=== PATIENT | male | born 1980 | race Caucasian/White ===

== ENCOUNTER 2019-11-27 12:53 | Emergency (ER) | payer SELFPAY ==
[~2019-11-27] VITALS: Ht 182 cm; Wt 86.0 kg
--- NOTE | 2019-11-27 13:08 | ED General ---
General Stated Complaint: L LEG NUMBNESS Source of Information: Patient Exam Limitations: No Limitations History of Present Illness Date Seen by Provider: Nov 27, 2019 Time Seen by Provider: 13:05 Initial Comments To ER with left leg pain and numbness. The pain begins in the left buttocks and radiates down to the left knee. He awakened with this. 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 He noticed a popping sensation in his left medial knee yesterday, the pain started this morning upon awakening. Unsure if the instruments are related. Timing/Duration: 1-2 Days Severity: Moderate Allergies and Home Medications Allergies Coded Allergies: No Known Drug Allergies (Unverified , 11/27/19) Patient Home Medication List Home Medication List Reviewed: Yes Review of Systems Review of Systems Constitutional: see HPI; No chills, No fever EENTM: see HPI Respiratory: no symptoms reported Cardiovascular: no symptoms reported Genitourinary: no symptoms reported Musculoskeletal: no symptoms reported Skin: no symptoms reported Psychiatric/Neurological: No Symptoms Reported Hematologic/Lymphatic: No Symptoms Reported Immunological/Allergic: no symptoms reported Past Yeppdhh-Razqcp-Ohollk Hx Patient Social History Recent Foreign Travel: No Contact w/Someone Who Travel: No Physical Exam Vital Signs Capillary Refill : Height, Weight, BMI Height: '" Weight: lbs. oz. kg; BMI Method: General Appearance: No Apparent Distress, WD/WN Eyes: Bilateral Eye Normal Inspection, Bilateral Eye PERRL, Bilateral Eye EOMI HEENT: PERRL/EOMI, TMs Normal Respiratory: No Accessory Muscle Use, No Respiratory Distress Gastrointestinal: Normal Bowel Sounds, Non Tender, Soft Extremity: Normal Capillary Refill, Normal Inspection Neurologic/Psychiatric: Alert, Oriented x3 Skin: Normal Color, Warm/Dry Comments Medial left knee tenderness to palpation without deformity or swelling. Strong posterior tibial pulse. Progress/Results/Core Measures Suspected Sepsis SIRS Temperature: Pulse: Respiratory Rate: Blood Pressure / Mean: Results/Orders My Orders Orders - ATIF LEMUS APRN Ketorolac Injection (Toradol Injection) (11/27/19 13:15) Orphenadrine Inj (Ed Only) (Norflex Inje (11/27/19 13:15) Knee, Left, 3 Views (11/27/19 13:03) Vital Signs/I&O Capillary Refill : Departure Impression Primary Impression: Lumbar radiculopathy Disposition: 01 HOME, SELF-CARE Condition: Stable Departure-Patient Inst. Decision time for Depature: 13:12 Referrals: NO,LOCAL PHYSICIAN (PCP/Family) Primary Care Physician Patient Instructions: Sciatica Add. Discharge Instructions: 1. No heavy lifting or work for the next 3-4 days. Steroids and pain medication as directed. Return to ER for any worsening symptoms, loss of the ability to control your bowels or bladder or loss of sensation of genitals as these represent emergencies. Scripts Prednisone (Prednisone) 20 Mg Tab 40 MG PO DAILY, #8 TAB 0 Refills Prov: ATIF LEMUS APRN 11/27/19 ATIF LEMUS APRN Nov 27, 2019 13:08
[2019-11-27] MEDS ORDERED: HYDR-3870 PO (13:14)
[2019-11-27] MEDS ORDERED: PRD20T PO (13:14)
[2019-11-27] MEDS ORDERED: KETOROLAC 60 MG/2 ML VIAL IM ONE (13:15)
[2019-11-27] MEDS ORDERED: ORPHENADRINE 60 MG/2 ML (NORFLEX) AMP (ED ONLY) IM ONE (13:15)
--- NOTE | 2019-11-27 13:37 | Diagnostic Imaging Report ---
INDICATION: Left knee popping and pain. TIME OF EXAM: 1:10 PM 3 views of the left knee were obtained. Alignment is normal. Joint spaces are well maintained. Articular surfaces are smooth. Well-corticated osseous densities along the medial femoral epicondyle are noted likely chronic. No acute fracture or dislocation is seen. There is no joint effusion detected. IMPRESSION: No acute bony abnormality is detected. Dictated by: Dictated on workstation # [id number]
[2019-11-27 13:57] VITALS: BP 142/101
== END 2019-11-27 13:57 | disposition home or self-care (01) ==
LOC: EDUNIT# 12:53 → ER 12:55
DX: M54.16 Radiculopathy, lumbar region (principal)
CPT/HCPCS: 73562

== ENCOUNTER 2020-07-17 10:30 | Emergency (ER) | payer SELFPAY ==
[~2020-07-17] VITALS: Ht 182 cm; Wt 94.0 kg
[~2020-07-17 10:30] MED LIST: HYDR-3870 PO; PRD20T PO
[2020-07-17 10:47] VITALS: BP 145/70
[2020-07-17] MEDS ORDERED: AMOX500C2 PO (11:14)
[2020-07-17] MEDS ORDERED: IBUP-1780 PO (11:14)
[2020-07-17] MEDS ORDERED: ACHD5005 PO (11:14)
--- NOTE | 2020-07-17 11:15 | ED EENT ---
History of Present Illness General Chief Complaint: Dental Problems/Pain Stated Complaint: TOOTH ACHE Nursing Triage Note: PT PRESENTS WITH LEFT LOWER DENTAL PAIN. TOOTH IS MOST MISSING WITH A DENTAL HAILEY PRESENT. PT STATES ITS 5 WEEKS TO GET INTO [facility]. Source: patient History of Present Illness Date Seen by Provider: Jul 17, 2020 Time Seen by Provider: 10:38 Initial Comments 39-year-old male presenting with left lower dental pain x1 week. He has had chronic issues with his teeth and usually follows with the [facility] dental clinic. When he checked about getting him with them they told him it would be 5 weeks before he can be seen. He denies any fever or chills. He has had some pu s draining from the tooth. There are some mild swelling to the gums. He has been trying yfrn-[id number] meds without any significant improvement. Has mom given him a single hydrocodone which she states that helps with his symptoms. He has multiple broken and missing teeth as well as widespread dental decay. Allergies and Home Medications Allergies Coded Allergies: No Known Drug Allergies (Unverified , 11/27/19) Home Medications Amoxicillin 500 Mg Capsule, 500 MG PO TID Prescribed by: NIA KAMINSKI on 07/17/20 1114 Hydrocodone/Acetaminophen 1 Each Tablet, 1 EACH PO Q4-6HR PRN for PAIN-MODERATE Prescribed by: ATIF LEMUS on 11/27/19 1314 Hydrocodone/Acetaminophen 1 Each Tablet, 1 TAB PO Q8H PRN for PAIN-SEVERE (8-10) Prescribed by: NIA KAMINSKI on 07/17/20 1115 Ibuprofen 800 Mg Tablet, 800 MG PO Q8H PRN for PAIN Prescribed by: NIA KAMINSKI on 07/17/20 1114 Prednisone 20 Mg Tab, 40 MG PO DAILY Prescribed by: ATIF LEMSU on 11/27/19 1314 Patient Home Medication List Home Medication List Reviewed: Yes Review of Systems Review of Systems Constitutional: No chills, No fever Eyes: No Symptoms Reported Ears: No Symptoms Reported Nose: no symptoms reported Mouth: see HPI, pain, swelling, purulent discharge Throat: no symptoms reported Respiratory: no symptoms reported Cardiovascular: no symptoms reported Gastrointestinal: nausea (especially first thing in the morning when he wakes up for about 30 minutes) Musculoskeletal: no symptoms reported Skin: no symptoms reported Neurological: No Symptoms Reported Past Bhlxtsy-Aasbug-Okwksw Hx Past Med/Social Hx: Reviewed Nursing Past Med/Soc Hx Patient Social History Alcohol Use: Denies Use Drug of Choice: MARIJUANA Smoking Status: Current Everyday Smoker Type Used: Cigarettes Recent Infectious Disease Expo: No Recent Hopitalizations: No Seasonal Allergies Seasonal Allergies: No Past Medical History Surgeries: No Respiratory: No Cardiac: No Neurological: No Genitourinary: No Gastrointestinal: No Musculoskeletal: No Endocrine: No HEENT: No Cancer: No Psychosocial: No Integumentary: No Blood Disorders: No Physical Exam Vital Signs Vital Signs - First Documented 07/17/20 10:47 Temp 36.4 Pulse 57 Resp 16 B/P (MAP) 145/70 (95) Pulse Ox 99 O2 Delivery Room Air Height, Weight, BMI Height: '" Weight: lbs. oz. kg; 28.00 BMI Method: General Appearance: WD/WN, no apparent distress Mouth/Throat: dental tenderness, other (widespread dental decay with several broken and missing teeth. left posterior mandible broken tooth with swelling to gums and tender to palpation) Neck: full range of motion, supple Cardiovascular: normal peripheral pulses, regular rate, rhythm Respiratory: chest non-tender, lungs clear, normal breath sounds Neurologic/Psychiatric: alert, oriented x 3 Skin: normal color, warm/dry Progress/Results/Core Measures Results/Orders Vital Signs/I&O 07/17/20 10:47 Temp 36.4 Pulse 57 Resp 16 B/P (MAP) 145/70 (95) Pulse Ox 99 O2 Delivery Room Air Blood Pressure Mean: 95 Progress Progress Note : Progress Note treat with amoxicillin and ibuprofen and hydrocodone. Counseled on follow up with clinic to see dentist as soon as possible for definitive care Departure Impression Primary Impression: Dental abscess Additional Impressions: Pain due to dental caries Chronic dental pain Pain, dental Disposition: HOME, SELF-CARE Condition: Stable Departure-Patient Inst. Decision time for Depature: 11:15 Referrals: NO,LOCAL PHYSICIAN (PCP) Primary Care Physician [facility] Patient Instructions: Dental Pain ED, Tooth Decay, Adult (DC), Tooth Abscess ( DC) Add. Discharge Instructions: Follow up with Dental clinic through [facility] or dentist of your choice as soon as possible. Take antibiotics to help treat infection in the meantime. [facility] phone number is [phone] All discharge instructions reviewed with patient and/or family. Voiced understanding. Scripts Ibuprofen (Ibuprofen) 800 Mg Tablet 800 MG PO Q8H PRN for PAIN for 10 Days, #30 TAB 0 Refills Prov: NIA KAMINSKI MD 07/17/20 Hydrocodone/Acetaminophen (Hydrocodone-Acetamin 5-325 mg) 1 Each Tablet 1 TAB PO Q8H PRN for PAIN-SEVERE (8-10) for 5 Days, #15 TAB 0 Refills Prov: NIA KAMINSKI MD 07/17/20 Amoxicillin (Amoxicillin) 500 Mg Capsule 500 MG PO TID for dental abscess for 10 Days, #30 CAP 0 Refills Prov: NIA KAMINSKI MD 07/17/20 Images Mouth/Nose 1 - Caries, Fracture Tooth, Swelling, Tenderness NIA KAMINSKI MD Jul 17, 2020 11:15
== END 2020-07-17 11:21 | disposition home or self-care (01) ==
LOC: EDUNIT# 10:30 → ER FS 10:32
DX: K04.7 Periapical abscess without sinus (principal); K02.9 Dental caries, unspecified; F17.210 Nicotine dependence, cigarettes, uncomplicated; Z79.52 Long term (current) use of systemic steroids
CPT/HCPCS: 99282

== ENCOUNTER 2021-05-16 18:57 | Emergency (ER) | payer SELFPAY ==
[~2021-05-16 18:57] MED LIST changes: +ACHD5005 PO; +AMOX500C2 PO; +IBUP-1780 PO
--- OUTSIDE RECORDS SUMMARY | 2021-05-16 19:02 | XMS REPORT | Clinical Summary ---
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
[2021-05-16 19:39] VITALS: BP 161/93
[2021-05-16] MEDS ORDERED: KETOROLAC 60 MG/2 ML VIAL IM ONE (19:45)
[2021-05-16] MEDS ORDERED: predniSONE 20 MG TAB PO ONE (19:45)
[2021-05-16] MEDS ORDERED: PRD20T PO (19:52)
[2021-05-16] MEDS ORDERED: ACHD5005 PO (19:52)
--- NOTE | 2021-05-16 19:52 | ED Lower Extremity ---
General Chief Complaint: Lower Extremity Stated Complaint: L LEG PAIN Source: patient Exam Limitations: no limitations (ATIF LEMUS APRN) History of Present Illness Date Seen by Provider: May 16, 2021 Time Seen by Provider: 19:46 Initial Comments To ER with pain in the low back that radiates into the left butt cheek and all the way down the left leg. Pain feels better with the weight offloaded while sitting in the bed. He is in a position of comfort which is in a seated position with all of his weight on his right buttock and his left leg crossed over the right. No wound on either leg. Denies loss of bowel or bladder control, no preceding trauma, no fever no chills, no numbness of genitals, de nies IV drug use, no history of cancer. Onset: yesterday Severity: moderate Pain/Injury Location: right leg Method of Injury: unknown Modifying Factors: Worse With Movement (ATIF LEMUS APRN) Allergies and Home Medications Allergies Coded Allergies: No Known Drug Allergies (Unverified , 11/27/19) Patient Home Medication List Home Medication List Reviewed: Yes (ATIF LEMUS APRN) Amoxicillin (Amoxicillin) 500 Mg Capsule, 500 MG PO TID Prescribed by: NIA KAMINSKI on 07/17/20 1114 Hydrocodone/Acetaminophen (Lorcet 5-325 mg Tablet) 1 Each Tablet, 1 EACH PO Q4- 6HR PRN for PAIN-MODERATE Prescribed by: ATIF LEMUS on 11/27/19 1314 Hydrocodone/Acetaminophen (Hydrocodone-Acetamin 5-325 mg) 1 Each Tablet, 1 TAB PO Q8H PRN for PAIN-SEVERE (8-10) Prescribed by: NIA KAMINSKI on 07/17/20 1115 Hydrocodone/Acetaminophen (Hydrocodone-Acetamin 5-325 mg) 1 Each Tablet, 1 TAB PO Q4H PRN for PAIN-MODERATE (5-7) Prescribed by: ATIF LEMUS on 05/16/211951 Ibuprofen (Ibuprofen) 800 Mg Tablet, 800 MG PO Q8H PRN for PAIN Prescribed by: NIA KAMINSKI on 07/17/20 1114 Prednisone (Prednisone) 20 Mg Tab, 40 MG PO DAILY Prescribed by: ATIF LEMUS on 11/27/19 1314 Prednisone (Prednisone) 20 Mg Tab, 40 MG PO DAILY Prescribed by: ATIF LEMUS on 05/16/211951 Review of Systems Constitutional: see HPI; No chills, No fever EENTM: see HPI Respiratory: no symptoms reported Cardiovascular: no symptoms reported Genitourinary: see HPI Musculoskeletal: see HPI, back pain Skin: see HPI Psychiatric/Neurological: See HPI (ATIF LEMUS APRN) Past Bgcumsn-Hvlamo-Hskche Hx Patient Social History Tobacco Use?: Yes Tobacco type used: Cigarettes Smoking Status: Current Everyday Smoker Use of E-Cig and/or Vaping dev: No Substance use?: No Alcohol Use?: No (ATIF LEMUS APRN) Immunizations Up To Date Influenza Vaccine Up-to-Date: Yes; Up-to-Date First/Initial COVID19 Vaccinat: SEPTEMBER 2020 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: [employer] (ATIF LEMUS APRN) Seasonal Allergies Seasonal Allergies: No (ATIF LEMUS APRN) Past Medical History Surgeries: No Respiratory: No Cardiac: No Neurological: No Genitourinary: No Gastrointestinal: No Musculoskeletal: No Endocrine: No HEENT: No Cancer: No Psychosocial: No Integumentary: No Blood Disorders: No (ATIF LEMUS APRN) Physical Exam Vital Signs Vital Signs - First Documented 05/16/21 19:39 Temp 36.6 Pulse 88 Resp 22 B/P (MAP) 161/93 (115) Pulse Ox 98 O2 Delivery Room Air (KESHA,CARLOS K DO) Vital Signs Capillary Refill : (ATIF LEMUS APRN) Height, Weight, BMI Height: '" Weight: lbs. oz. kg; 28.00 BMI Method: General Appearance: WD/WN, no apparent distress HEENT: PERRL/EOMI, normal ENT inspection, TMs normal Neck: non-tender, full range of motion Respiratory: no respiratory distress, no accessory muscle use Hips: bilateral hip non-tender, bilateral hip normal inspection, bilateral hip normal range of motion Legs: left leg pain, left leg other (Strong dorsalis pedis pulse bilaterally no wound) Knees: bilateral knee non-tender, bilateral knee normal inspection, bilateral knee normal range of motion Ankles: bilateral ankle non-tender, bilateral ankle normal inspection, bilateral ankle normal range of motion Feet: bilateral foot non-tender, bilateral foot normal inspection, bilateral foot normal range of motion (ATIF LEMUS APRN) Progress/Results/Core Measures Results/Orders Medications Given in ED Current Medications Medications Dose Ordered Sig/Brandon Route Start Time Stop Time Status Last Admin Dose Admin Acetaminophen/ Hydrocodone Bitart 1 ea Q4H PRN PO 05/16/21 19:45 05/16/21 20:08 DC 05/16/21 20:06 1 EA Ketorolac Tromethamine 60 mg ONCE ONCE IM 05/16/21 19:45 05/16/21 19:47 DC 05/16/21 20:06 60 MG Prednisone 40 mg ONCE ONCE PO 05/16/21 19:45 05/16/21 19:47 DC 05/16/21 20:05 40 MG (CARLOS REBOLLEDO DO) Vital Signs/I&O 05/16/21 19:39 Temp 36.6 Pulse 88 Resp 22 B/P (MAP) 161/93 (115) Pulse Ox 98 O2 Delivery Room Air (CARLOS REBOLLEDO DO) Departure Impression Primary Impression: Acute low back pain Additional Impression: Lumbar radiculopathy Disposition: HOME, SELF-CARE Condition: Stable Departure-Patient Inst. Decision time for Depature: 19:48 (ATIF LEMUS APRN) Referrals: JULIANNE RADFORD BRIAN J MD NO,LOCAL PHYSICIAN (PCP) Primary Care Physician Patient Instructions: Low Back Pain in Adults Add. Discharge Instructions: 1. Call Dr. MARKS or Dr. Radford from front end alignment specialist of the [facility]. They can facilitate getting an MRI of your lumbar spine and further treatment. Call tomorrow for an appointment. All discharge instructions reviewed with patient and/or family. Voiced understanding. Scripts Hydrocodone/Acetaminophen (Hydrocodone-Acetamin 5-325 mg) 1 Each Tablet 1 TAB PO Q4H PRN for PAIN-MODERATE (5-7), #10 TAB Prov: ATIF LEMUS APRN 05/16/21 Prednisone (Prednisone) 20 Mg Tab 40 MG PO DAILY, #6 TAB 0 Refills Prov: ATIF LEMUS APRN 05/16/21 Work/School Note: Work Release Form Date Seen in the Emergency Department: May 16, 2021 Return to Work: May 18, 2021 ATTENDING PHYSICIAN NOTE: I WAS PHYSICALLY PRESENT ER PHYSICIAN WHEN THIS PATIENT WAS IN ER, BUT I WAS NOT INVOLVED IN ANY DECISION MAKING OR ANY CARE OF THIS PATIENT. (CARLOS REBOLLEDO DO) ATIF LEMUS APRN May 16, 2021 19:52 CARLOS REBOLLEDO DO May 17, 2021 04:12
== END 2021-05-16 20:08 | disposition home or self-care (01) ==
LOC: EDUNIT# 18:57 → ER 18:59
DX: M54.16 Radiculopathy, lumbar region (principal); F17.210 Nicotine dependence, cigarettes, uncomplicated
CPT/HCPCS: 96372; 99284

== ENCOUNTER 2021-07-26 16:52 | Emergency (ER) | payer SELFPAY ==
[~2021-07-26] VITALS: Ht 183 cm; Wt 107.0 kg
--- NOTE | 2021-07-26 17:20 | ED Back Pain ---
General Chief Complaint: Back Problems Stated Complaint: L LEG PAIN Nursing Triage Note: PT AMB TO ER WITH C/O L LEG AND BACK PAIN AND TINLGING FEELING. PT SAID HE WAS CARRYING SOME SHINGLES UP A LADDER AND FELT THIS AFTER Source of Information: Patient Exam Limitations: No Limitations (FERNY DAVILA MED STUDENT) History of Present Illness Date Seen by Provider: Jul 26, 2021 Time Seen by Provider: 15:08 Initial Comments Patient is a 40 year old male who presents to the ED with complaints of left buttock/leg pain. Reports climbing up a ladder today at 9am carrying shingles and setting them down on the roof, then upon standing felt a "jolt" of sharp pain radiating from his left buttock down to his left knee on the posterior aspect of the thigh. Never felt or heard a popping sensation. Reports that m ovement and walking worsen the pain. Took some tylenol and aleve with no relief of pain. Lying on right hip with left leg draped over right leg help minimize the pain. Rates his pain at a 7/10 currently. Denies numbness and tingling of the left lower extremity. Is able to move the left hip, knee, and ankle. Dorsiflexion and plantarflexion of left foot minimal secondary to pain. Grimaced when palpating the skin over the sciatic nerve of left buttock. No chest pain, fevers, dysuria, bowel or bladder incontinence or headache. Reports an episode like this about 7 months ago for which he received a steroid and a pain med. Location: Other (left buttock left leg) Timing/Duration: 4-6 Hours Severity: Moderate Pain/Injury Location: Lower Extremity (left leg/buttock) Radiation: Lower Legs (from left buttock to left knee posteriorly along the thigh) Method of Injury: Other (standing upright from bending position) Modifying Factors: Improves With Jarring, Improves With Movement Associated Symptoms: denies symptoms; No numbness in legs/feet, No tingling in legs/feet, No sensory/motor loss, No loss of bladder control, No loss of bowel control (FERNY DAVILA MED STUDENT) Allergies and Home Medications Allergies Coded Allergies: No Known Drug Allergies (Unverified , 11/27/19) Patient Home Medication List Home Medication List Reviewed: Yes (J LUIS IVORY MD) Amoxicillin (Amoxicillin) 500 Mg Capsule, 500 MG PO TID Prescribed by: NIA KAMINSKI on 07/17/20 111 Hydrocodone/Acetaminophen (Lorcet 5-325 mg Tablet) 1 Each Tablet, 1 EACH PO Q4- 6HR PRN for PAIN-MODERATE Prescribed by: ATIF LEMUS on 11/27/19 131 Hydrocodone/Acetaminophen (Hydrocodone-Acetamin 5-325 mg) 1 Each Tablet, 1 TAB PO Q8H PRN for PAIN-SEVERE (8-10) Prescribed by: NIA KAMINSKI on 07/17/20 1115 Hydrocodone/Acetaminophen (Hydrocodone-Acetamin 5-325 mg) 1 Each Tablet, 1 TAB PO Q4H PRN for PAIN-MODERATE (5-7) Prescribed by: ATIF LEMUS on 05/16/211951 Hydrocodone/Acetaminophen (Hydrocodone-Acetamin 7.5-325) 1 Each Tablet, 1 EACH PO Q6H Prescribed by: J LUIS IVORY on 07/26/211734 Ibuprofen (Ibuprofen) 800 Mg Tablet, 800 MG PO Q8H PRN for PAIN Prescribed by: NIA KAMINSKI on 07/17/20 111 Prednisone (Prednisone) 20 Mg Tab, 40 MG PO DAILY Prescribed by: ATIF LEMUS on 11/27/191313 Prednisone (Prednisone) 20 Mg Tab, 40 MG PO DAILY Prescribed by: ATIF LEMUS on 05/16/211951 Prednisone (Prednisone) 50 Mg Tab, 50 MG PO DAILY Prescribed by: J LUIS IVORY on 07/26/211734 Review of Systems Constitutional: no symptoms reported; No chills, No diaphoresis, No fever EENTM: no symptoms reported; No hearing loss, No blurred vision, No double vision Respiratory: no symptoms reported; No cough, No dyspnea on exertion, No short of breath Cardiovascular: no symptoms reported; No chest pain, No edema, No palpitations Gastrointestinal: no symptoms reported; No abdominal pain, No constipation, No diarrhea, No nausea, No vomiting Genitourinary: no symptoms reported; No dysuria, No frequency Musculoskeletal: other (left buttock and left leg pain along posterior left calf to left knee) Skin: no symptoms reported; No change in color, No change in hair/nails Psychiatric/Neurological: No Symptoms Reported; Denies Anxiety, Denies Depressed (FERNY DAVILA MED STUDENT) All Other Systems Reviewed Negative Unless Noted: Yes (LOL[employer]icksPal STUDENT) Past Kzuzcua-Olvktb-Lyhnny Hx Patient Social History Tobacco Use?: Yes Tobacco type used: Cigarettes Smoking Status: Current Everyday Smoker (1ppd x24 years) Smokeless Tobacco Frequency: Never a User Use of E-Cig and/or Vaping dev: No Use of E-Cig and/or Vaping Chris: Never a User Substance use?: No Alcohol Use?: Yes Alcohol type: Beer Alcohol Frequency: Rarely Pt feels they are or have been: No ([employer] STUDENT) Immunizations Up To Date Tetanus Booster (TDap): Unknown Influenza Vaccine Up-to-Date: Yes; Up-to-Date First/Initial COVID19 Vaccinat: SEPTEMBER 2020 COVID19 Vaccine 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 ([employer] LINNEA) Seasonal Allergies Seasonal Allergies: No ([facility]) Past Medical History Surgeries: No Respiratory: No Cardiac: No Neurological: No Genitourinary: No Gastrointestinal: No Musculoskeletal: No Endocrine: No HEENT: No Cancer: No Psychosocial: No Integumentary: No Blood Disorders: No ([employer] STUDENT) Physical Exam Vital Signs Vital Signs - First Documented 07/26/21 17:00 Temp 36.5 Pulse 84 Resp 16 B/P (MAP) 160/92 (114) (J LUIS IVORY MD) Vital Signs Capillary Refill : ([employer]AE [employer] STUDENT) Height, Weight, BMI Height: '" Weight: lbs. oz. kg; 31.00 BMI Method: General Appearance: No Apparent Distress, WD/WN HEENT: PERRL/EOMI, Pharynx Normal, Moist Mucous Membranes Neck: Full Range of Motion, Normal Inspection, Non Tender Cardiovascular: Regular Rate, Rhythm, No Edema, Normal Peripheral Pulses Respiratory: Chest Non Tender, Lungs Clear, Normal Breath Sounds Peripheral Pulses: 2+ Radial Pulses (R), 2+ Radial Pulses (L) Gastrointestinal: Normal Bowel Sounds, Non Tender, Soft Back: Normal Inspection, No Vertebral Tenderness Extremity: Normal Capillary Refill, Non Tender, No Calf Tenderness, No Pedal Edema Neurologic/Psychiatric: Alert, Oriented x3, No Motor/Sensory Deficits, Normal Mood/Affect Skin: Normal Color, Warm/Dry Lymphatic: No Adenopathy (Head and Neck) (FERNY DAVILA MED STUDENT) Progress/Results/Core Measures Results/Orders My Orders Orders - J LUIS IVORY MD Orphenadrine Inj (Ed Only) (Norflex Inje (07/26/21 17:30) Ketorolac Injection (Toradol Injection) (07/26/21 17:30) Prednisone Tablet (Deltasone Tablet) (07/26/21 17:30) Hydrocodone/Apap 5/325 Tablet (Lortab 5 (07/26/21 17:30) (J LUIS IVORY MD) Vital Signs/I&O 07/26/21 07/26/21 17:00 18:05 Temp 36.5 36.5 Pulse 84 80 Resp 16 16 B/P (MAP) 160/92 (114) 151/87 (J LUIS IVORY MD) Blood Pressure Mean: 114 Progress Progress Note : Time: 17:30 Progress Note 40yo male to the ER with left LE radicular pain, from left sciatic area, lower back. Was carrying a stack of shingles, let them down and when he stood up - had immediate onset of pain. Pain radiates to left knee and even his foot hurts. No saddle anethesia. No loss of bowel or bladder function. No retention. Had similar sx in April. No follow up. No trauma today. Physical exam remarkable for tenderness left sciatic and lower lumbar. DTR LLE intact. normal sensation. good pulses. decreased dorsiflexion left foot; good plantar flexion. Neg SLR left. position of comfort on right hip with left leg crossed over right. Treated in ED with hydrocodone, oral prednisone and norflex and toradol. HOme with pain meds and steroids. Alternate heat and ice. Strongly encouraged to follow up for imaging of his back Smoking cessation encouraged. (J LUIS IVORY MD) Departure Impression Primary Impression: Lumbar radiculopathy Additional Impression: Acute low back pain Qualified Codes: M54.42 - Lumbago with sciatica, left side Disposition: 01 HOME, SELF-CARE Condition: Stable Departure-Patient Inst. Decision time for Depature: 17:33 (J LUIS IVORY MD) Referrals: [facility] [place],LOCAL PHYSICIAN (PCP) Primary Care Physician Patient Instructions: Radiculopathy (DC) Add. Discharge Instructions: Alternate heat and ice to the area of pain for the next 3-5 days. Hydrocodone every 6 hours with food as needed for severe pain. Do not drive and take it. It can become addicting. Ibuprofen 800mg (4 tablets) with food every 8 hours for pain and inflammation. 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 Take this daily as instructed on the box. You can also put over the counter Lidocaine patches over the area of pain on your left hip/low back - follow packaging directions. Please follow up with a primary care physician for further imaging of your back - as you may need back injections or possibly surgery if this keeps repeating. Return to the ER if you have loss of bowel or bladder function, inability to urinate, loss of function of your left leg, or any other emergent and concerning symptoms. Scripts Hydrocodone/Acetaminophen (Hydrocodone-Acetamin 7.5-325) 1 Each Tablet 1 EACH PO Q6H, #15 TAB Prov: J LUIS IVORY MD 07/26/21 Prednisone (Prednisone) 50 Mg Tab 50 MG PO DAILY for 5 Days, #5 TAB Prov: J LUIS IVORY MD 07/26/21 Verification and Attestation of Medical Student E/M Service A medical student performed and documented this service in my presence. I reviewed and verified all information documented by the medical student and made modifications to such information, when appropriate. I personally performed the physical exam and medical decision making. J Luis Ivory, Jul 26, 2021,17:33 (J LUSI IVORY MD) FERNY DAVILA MED STUDENT Jul 26, 2021 17:20 J LUIS IVORY MD Jul 26, 2021 17:35
[2021-07-26] MEDS ORDERED: HYDROcodone/APAP 5 MG/325 MG (LORTAB) TAB PO ONE (17:30)
[2021-07-26] MEDS ORDERED: ORPHENADRINE 60 MG/2 ML (NORFLEX) AMP (ED ONLY) IM ONE (17:30)
[2021-07-26] MEDS ORDERED: KETOROLAC 60 MG/2 ML VIAL IM ONE (17:30)
[2021-07-26] MEDS ORDERED: predniSONE 20 MG TAB PO ONE (17:30)
[2021-07-26] MEDS ORDERED: PRD50T PO (17:35)
[2021-07-26] MEDS ORDERED: HYDR-3817 PO (17:35)
[2021-07-26 18:05] VITALS: BP 151/87
== END 2021-07-26 18:07 | disposition home or self-care (01) ==
LOC: EDUNIT# 16:52 → ER 16:54
DX: M54.16 Radiculopathy, lumbar region (principal); F17.210 Nicotine dependence, cigarettes, uncomplicated
CPT/HCPCS: 99284

== ENCOUNTER 2021-09-24 08:02 | Emergency (ER) | payer SELFPAY ==
[~2021-09-24 08:02] MED LIST changes: +HYDR-3817 PO; +PRD50T PO
[2021-09-24 08:10] VITALS: BP 150/104
--- NOTE | 2021-09-24 08:19 | ED Back Pain ---
General Chief Complaint: Back Problems Stated Complaint: BACK INJ History of Present Illness Date Seen by Provider: September 24, 2021 Time Seen by Provider: 08:19 Initial Comments 41-year-old male presents with low back pain. Patient has a history of chronic low back pain and has had issues for at least 2 years with previous ER visits. 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 Patient reports that he noticed he was a little stiff and sore on Saturday and has gotten worse throughout the weekend. He has little bit of pain that goes down to its left leg. He denies any numbness, tingling, loss of bowel or bladder. Allergies and Home Medications Allergies Coded Allergies: No Known Drug Allergies (Unverified , 11/27/19) Patient Home Medication List Home Medication List Reviewed: Yes Amoxicillin (Amoxicillin) 500 Mg Capsule, 500 MG PO TID Prescribed by: NIA KAMINSKI on 07/17/20 1114 Hydrocodone/Acetaminophen (Lorcet 5-325 mg Tablet) 1 Each Tablet, 1 EACH PO Q4- 6HR PRN for PAIN-MODERATE Prescribed by: ATIF LEMUS on 11/27/19 1314 Hydrocodone/Acetaminophen (Hydrocodone-Acetamin 5-325 mg) 1 Each Tablet, 1 TAB PO Q8H PRN for PAIN-SEVERE (8-10) Prescribed by: NIA KAMINSKI on 07/17/20 1115 Hydrocodone/Acetaminophen (Hydrocodone-Acetamin 5-325 mg) 1 Each Tablet, 1 TAB PO Q4H PRN for PAIN-MODERATE (5-7) Prescribed by: ATIF LEMUS on 05/16/211951 Hydrocodone/Acetaminophen (Hydrocodone-Acetamin 7.5-325) 1 Each Tablet, 1 EACH PO Q6H Prescribed by: J LUIS IVORY on 07/26/21 1735 Ibuprofen (Ibuprofen) 800 Mg Tablet, 800 MG PO Q8H PRN for PAIN Prescribed by: NIA KAMINSKI on 07/17/20 1114 Prednisone (Prednisone) 20 Mg Tab, 40 MG PO DAILY Prescribed by: ATIF LEMUS on 11/27/19 1314 Prednisone (Prednisone) 20 Mg Tab, 40 MG PO DAILY Prescribed by: ATIF LEMUS on 05/16/211951 Prednisone (Prednisone) 50 Mg Tab, 50 MG PO DAILY Prescribed by: J LUIS IVORY on 07/26/21 1735 Review of Systems Constitutional: No chills, No fever EENTM: no symptoms reported Respiratory: no symptoms reported Cardiovascular: no symptoms reported Gastrointestinal: no symptoms reported Genitourinary: no symptoms reported Musculoskeletal: see HPI, back pain Skin: no symptoms reported Psychiatric/Neurological: No Symptoms Reported Past Xkxutfl-Wnwkye-Ojjiju Hx Immunizations Up To Date Tetanus Booster (TDap): Unknown First/Initial COVID19 Vaccinat: SEPTEMBER 2020 Seasonal Allergies Seasonal Allergies: No Past Medical History Surgeries: No Respiratory: No Cardiac: No Neurological: No Genitourinary: No Gastrointestinal: No Musculoskeletal: No Endocrine: No HEENT: No Cancer: No Psychosocial: No Integumentary: No Blood Disorders: No Physical Exam Vital Signs Vital Signs - First Documented 09/24/21 08:10 Temp 36.9 Pulse 85 Resp 20 B/P (MAP) 150/104 (119) Pulse Ox 98 O2 Delivery Room Air Capillary Refill : Height, Weight, BMI Height: '" Weight: lbs. oz. kg; 31.00 BMI Method: General Appearance: No Apparent Distress HEENT: PERRL/EOMI Neck: Non Tender, Supple Cardiovascular: Regular Rate, Rhythm, No Edema Respiratory: Lungs Clear, Normal Breath Sounds Extremity: Normal Capillary Refill, Normal Inspection, Normal Range of Motion, Other (normal SRL, normal reflexes 2+ ) Neurologic/Psychiatric: Alert, Oriented x3, No Motor/Sensory Deficits, Normal Mood/Affect, spooler rubber strand II-XII Norm as Tested Skin: Normal Color, Warm/Dry Progress/Results/Core Measures Results/Orders My Orders Orders - JEET EVANS DO Ketorolac Injection (Toradol Injection) (09/24/21 08:20) Orphenadrine Inj (Ed Only) (Norflex Inje (09/24/21 08:20) Vital Signs/I&O 09/24/21 08:10 Temp 36.9 Pulse 85 Resp 20 B/P (MAP) 150/104 (119) Pulse Ox 98 O2 Delivery Room Air Departure Impression Primary Impression: Chronic back pain Qualified Codes: M54.42 - Lumbago with sciatica, left side; G89.29 - Other chronic pain Additional Impression: Lumbar sprain Qualified Codes: S33.5XXA - Sprain of ligaments of lumbar spine, initial encounter Disposition: HOME, SELF-CARE Condition: Stable Departure-Patient Inst. Referrals: NO,LOCAL PHYSICIAN (PCP/Family) Primary Care Physician Patient Instructions: Back Muscle Strain (DC), Radiculopathy (DC) Add. Discharge Instructions: Voltaren/diclofenac cream use as directed on package 4% topical lidocaine with menthol, cream, gel or patch use as directed on pack 800 mg ibuprofen every 4-6 hours as needed for pain Warm moist heat to affected area All discharge instructions reviewed with patient and/or family. Voiced understanding. JEET EVANS DO September 24, 2021 08:19
[2021-09-24] MEDS ORDERED: KETOROLAC 60 MG/2 ML VIAL IM STA (08:20)
[2021-09-24] MEDS ORDERED: ORPHENADRINE 60 MG/2 ML (NORFLEX) AMP (ED ONLY) IM STA (08:20)
== END 2021-09-24 08:33 | disposition home or self-care (01) ==
LOC: EDUNIT# 08:02 → ER FS 08:04
DX: S33.5XXA Sprain of ligaments of lumbar spine, initial encounter (principal); X50.9XXA Other and unspecified overexertion or strenuous movements or postures, initial encounter
CPT/HCPCS: 99284

== ENCOUNTER 2021-12-06 12:56 | Emergency (ER) | payer SELFPAY ==
[~2021-12-06] VITALS: Ht 182.9 cm; Wt 103.7 kg
[2021-12-06] MEDS ORDERED: SULF1TAB38 PO (13:28)
--- NOTE | 2021-12-06 13:29 | ED Integumentary General ---
General Chief Complaint: Skin/Wound Problems Stated Complaint: ABSCESS History of Present Illness Date Seen by Provider: Dec 06, 2021 Time Seen by Provider: 13:02 Initial Comments 41-year-old male presents with abscess to his left buttock. Patient reports has been there for 2 to 3 days. Has become painful and swollen. Patient reports that he has had a history of abscesses. Patient denies any fever, chills, nausea or vomiting. Allergies and Home Medications Allergies Coded Allergies: No Known Drug Allergies (Unverified , 11/27/19) Patient Home Medication List Home Medication List Reviewed: Yes Amoxicillin (Amoxicillin) 500 Mg Capsule, 500 MG PO TID Prescribed by: NIA KAMINSKI on 07/17/20 1114 Hydrocodone/Acetaminophen (Lorcet 5-325 mg Tablet) 1 Each Tablet, 1 EACH PO Q4- 6HR PRN for PAIN-MODERATE Prescribed by: ATIF LEMUS on 11/27/19 1314 Hydrocodone/Acetaminophen (Hydrocodone-Acetamin 5-325 mg) 1 Each Tablet, 1 TAB PO Q8H PRN for PAIN-SEVERE (8-10) Prescribed by: NIA KAMINSKI on 07/17/20 1115 Hydrocodone/Acetaminophen (Hydrocodone-Acetamin 5-325 mg) 1 Each Tablet, 1 TAB PO Q4H PRN for PAIN-MODERATE (5-7) Prescribed by: ATIF LEMUS on 05/16/211951 Hydrocodone/Acetaminophen (Hydrocodone-Acetamin 7.5-325) 1 Each Tablet, 1 EACH PO Q6H Prescribed by: J LUIS IVORY on 07/26/211734 Ibuprofen (Ibuprofen) 800 Mg Tablet, 800 MG PO Q8H PRN for PAIN Prescribed by: NIA KAMINSKI on 07/17/20 1114 Prednisone (Prednisone) 20 Mg Tab, 40 MG PO DAILY Prescribed by: ATIF LEMUS on 11/27/19 1314 Prednisone (Prednisone) 20 Mg Tab, 40 MG PO DAILY Prescribed by: ATIF LEMUS on 05/16/211951 Prednisone (Prednisone) 50 Mg Tab, 50 MG PO DAILY Prescribed by: J LUIS IVORY on 07/26/211734 Review of Systems Review of Systems Constitutional: No chills, No fever EENTM: no symptoms reported Respiratory: no symptoms reported Cardiovascular: no symptoms reported Gastrointestinal: no symptoms reported Genitourinary: no symptoms reported Musculoskeletal: no symptoms reported Skin: see HPI Psychiatric/Neurological: No Symptoms Reported Endocrine: No Symptoms Reported Past Zfrjfuy-Xfpoxx-Twlxng Hx Immunizations Up To Date Tetanus Booster (TDap): Unknown First/Initial COVID19 Vaccinat: SEPTEMBER 2020 Second COVID19 Vaccination Nemesio: SEPTEMBER 2020 Third COVID19 Vaccination Date: SEPTEMBER 2020 Seasonal Allergies Seasonal Allergies: No Past Medical History Surgery/Hospitalization HX: CHRONIC BACK PAIN Surgeries: No Respiratory: No Cardiac: No Neurological: No Genitourinary: No Gastrointestinal: No Musculoskeletal: No Endocrine: No HEENT: No Cancer: No Psychosocial: No Integumentary: No Blood Disorders: No Physical Exam Vital Signs Capillary Refill : General Appearance: WD/WN, no apparent distress HEENT: PERRL/EOMI Cardiovascular: normal peripheral pulses, regular rate, rhythm Respiratory: lungs clear, normal breath sounds Gastrointestinal: soft; No distended Extremities: normal range of motion, non-tender Neurologic/Psychiatric: alert, normal mood/affect, oriented x 3 Skin: other Skin Problem Location: other (Left buttock) Skin Problem Character: abscess Procedures/Interventions I&D : Site: Left buttock Blade Size: 11 I & D Procedure: betadine prep; no Wound Packing Progress Patient tolerated well with no immediate complication. There was a moderate amount of purulent drainage Progress/Results/Core Measures Progress Progress Note : Progress Note Patient with left buttock abscess. Abscess was confirmed by ultrasound and then incised with 11 blade. Patient tolerated well. There was a moderate amount of purulent drainage. Patient to be discharged on Bactrim. He should put on a warm pack and keep wound drain. Patient stable and discharged home Departure Impression Primary Impression: Abscess of buttock, left Disposition: 01 HOME, SELF-CARE Condition: Stable Departure-Patient Inst. Referrals: NO,LOCAL PHYSICIAN (PCP/Family) Primary Care Physician Patient Instructions: Abscess Incision and Drainage Add. Discharge Instructions: Warm compress 3-4 times a day Please express purulent material 2-3 times daily Follow-up with your primary care provider in 1 week for recheck All discharge instructions reviewed with patient and/or family. Voiced understanding. Scripts Sulfamethoxazole/Trimethoprim (Bactrim Ds Tablet) 1 Each Tablet 1 EACH PO BID for 10 Days, #20 TAB Prov: JEET EVANS DO 12/06/21 JEET EVANS DO Dec 06, 2021 13:28
[2021-12-06 13:58] VITALS: BP 147/77
== END 2021-12-06 13:59 | disposition home or self-care (01) ==
LOC: EDUNIT# 12:56 → ER FS 12:57
DX: L02.31 Cutaneous abscess of buttock (principal)
CPT/HCPCS: 87070; 87077; 87205; 99282

== ENCOUNTER 2021-12-10 12:12 | Emergency (ER) | payer SELFPAY ==
[~2021-12-10] VITALS: Ht 182.8 cm; Wt 101.6 kg
[~2021-12-10 12:12] MED LIST changes: +SULF1TAB38 PO
--- NOTE | 2021-12-10 13:08 | ED Integumentary General ---
General Chief Complaint: Skin/Wound Problems Stated Complaint: ABSCESS Source: patient History of Present Illness Date Seen by Provider: Dec 10, 2021 Time Seen by Provider: 13:07 Initial Comments 41-year-old male presenting with complaints of recurrent continued abscess to the left buttock. He states that he has this area recur at least every 1 or 2 years. He denies any history of MRSA. However he does have exposure to close contact that is positive for MRSA. He was seen 4 days ago for the same abscess and had an I&D performed with drainage of some purulent material from the abscess. There was not enough to be able to perform packing. 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 He presents today to the emergency department because he has had increasing redness and pain and swelling to the area. He has had continued drainage at home intermittently. He denies fever or chills. He was not able to work on Saturday due to the pain Timing/Duration: getting worse Severity: severe Location: genitalia (Left buttock) Possible Cause: no cause identified Associated Symptoms: No blisters, No fever, No flushing, No headache, No hives, No jaundice, No malaise, No nasal congestion, No numbness, No pallor, No paresthesia, No petechiae, No rash, No sore throat; swelling/mass/lumps (Swelling with tenderness and redness to the left buttock) Allergies and Home Medications Allergies Coded Allergies: No Known Drug Allergies (Unverified , 11/27/19) Patient Home Medication List Home Medication List Reviewed: Yes Amoxicillin (Amoxicillin) 500 Mg Capsule, 500 MG PO TID Prescribed by: NIA KAMINSKI on 07/17/20 1114 Hydrocodone/Acetaminophen (Lorcet 5-325 mg Tablet) 1 Each Tablet, 1 EACH PO Q4- 6HR PRN for PAIN-MODERATE Prescribed by: ATIF LEMUS on 11/27/19 1314 Hydrocodone/Acetaminophen (Hydrocodone-Acetamin 5-325 mg) 1 Each Tablet, 1 TAB PO Q8H PRN for PAIN-SEVERE (8-10) Prescribed by: NIA KAMINSKI on 07/17/20 1115 Hydrocodone/Acetaminophen (Hydrocodone-Acetamin 5-325 mg) 1 Each Tablet, 1 TAB PO Q4H PRN for PAIN-MODERATE (5-7) Prescribed by: ATIF LEMUS on 05/16/211951 Hydrocodone/Acetaminophen (Hydrocodone-Acetamin 7.5-325) 1 Each Tablet, 1 EACH PO Q6H Prescribed by: J LUIS IVORY on 07/26/21 173 Hydrocodone/Acetaminophen (Hydrocodone-Acetamin 5-325 mg) 5 Mg-325 Mg Tablet, 1 TAB PO Q4H PRN for PAIN-SEVERE (8-10) Prescribed by: NIA KAMINSKI on 12/10/21 1437 Ibuprofen (Ibuprofen) 800 Mg Tablet, 800 MG PO Q8H PRN for PAIN Prescribed by: NIA KAMINSKI on 07/17/20 1114 Ibuprofen (Ibuprofen) 800 Mg Tablet, 800 MG PO Q8H PRN for PAIN Prescribed by: NIA KAMINSKI on 12/10/21 143 Prednisone (Prednisone) 20 Mg Tab, 40 MG PO DAILY Prescribed by: ATIF LEMUS on 11/27/19 1314 Prednisone (Prednisone) 20 Mg Tab, 40 MG PO DAILY Prescribed by: ATIF LEMUS on 05/16/211951 Prednisone (Prednisone) 50 Mg Tab, 50 MG PO DAILY Prescribed by: J LUIS IVORY on 07/26/21 173 Sulfamethoxazole/Trimethoprim (Bactrim Ds Tablet) 1 Each Tablet, 1 EACH PO BID Prescribed by: JEET EVANS on 12/06/21 1328 Sulfamethoxazole/Trimethoprim (Bactrim Ds Tablet) 1 Each Tablet, 1 EACH PO BID Prescribed by: NIA KAMINSKI on 12/10/21 143 Review of Systems Review of Systems Constitutional: chills; No fever EENTM: no symptoms reported Respiratory: no symptoms reported Cardiovascular: no symptoms reported Gastrointestinal: no symptoms reported Genitourinary: no symptoms reported Musculoskeletal: no symptoms reported Skin: see HPI Psychiatric/Neurological: Anxiety Past Akdfuyt-Ywxtbn-Rftptj Hx Patient Social History Tobacco Use?: Yes Immunizations Up To Date Tetanus Booster (TDap): Unknown First/Initial COVID19 Vaccinat: SEPTEMBER 2020 Second COVID19 Vaccination Nemesio: SEPTEMBER 2020 Third COVID19 Vaccination Date: SEPTEMBER 2020 Seasonal Allergies Seasonal Allergies: No Past Medical History Surgery/Hospitalization HX: CHRONIC BACK PAIN, 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 Surgeries: No Respiratory: No Cardiac: No Neurological: No Genitourinary: No Gastrointestinal: No Musculoskeletal: No Endocrine: No HEENT: No Cancer: No Psychosocial: No Integumentary: No Blood Disorders: No Physical Exam Vital Signs Vital Signs - First Documented 12/10/21 14:16 Temp 35.6 Pulse 96 Resp 14 B/P (MAP) 134/68 (90) Pulse Ox 98 O2 Delivery Room Air Capillary Refill : General Appearance: WD/WN, mild distress Cardiovascular: normal peripheral pulses, regular rate, rhythm Respiratory: chest non-tender, lungs clear, normal breath sounds, no respiratory distress, no accessory muscle use Gastrointestinal: normal bowel sounds, non tender, soft, no pulsatile mass Extremities: normal capillary refill Neurologic/Psychiatric: alert, oriented x 3 Skin: warm/dry, other (Redness and swelling to the left) Skin Problem Location: other (Left buttock) Skin Problem Character: abscess, erythema, swelling, tenderness, thickening, warm Procedures/Interventions I&D : Site: Left buttock Blade Size: 11 I & D Procedure: sterile drapes applied, sterile dressing applied, Wound Packing Packing/Drain: Idoform 1/ Progress After obtaining verbal consent from the patient the abscess was anesthetized using 1% plain lidocaine infiltrated under the skin. A total of 1.5 mL were infiltrated to the skin. Then using chlorhexidine scrub soap and sterile water open wound and abscess was cleaned. An 11 blade scalpel was used to make a single incision where the abscess was pointing and appeared to be coming to ahead. He immediately had some blood and minimal drainage with palpation of the area he had further purulent drainage in large amounts. 1/4 in Iodoform gauze was placed as a drain. Pt tolerated procedure well without any immediate complication. Progress/Results/Core Measures Results/Orders My Orders Orders - NIA KAMINSKI MD Ceftriaxone (Rocephin) (12/10/21 13:26) Lidocaine 1% Inj 20 Ml (Xylocaine 1% Inj (12/10/21 13:30) Hydrocodone/Apap 5/325 Tablet (Lortab 5 (12/10/21 13:26) Wound Culture (12/10/21 13:26) Medications Given in ED Vital Signs/I&O 12/10/21 12/10/21 14:16 14:41 Temp 35.6 36.2 Pulse 96 89 Resp 14 14 B/P (MAP) 134/68 (90) 130/68 Pulse Ox 98 97 O2 Delivery Room Air Room Air Progress Progress Note : Progress Note Incision and drainage of the abscess obtained and new wound culture was sent. A large amount of purulent material was expressed from the abscess. A drain was placed using iodoform gauze. Counseled on follow-up and return precautions. New prescription for antibiotic was sent to the pharmacy. Counseled on management of the drain and abscess after incision and drainage. Since this is a recurring issue he may need to see a surgeon for more surgical excision of the area Departure Impression Primary Impression: Abscess of buttock, left Additional Impression: Exposure to MRSA Disposition: HOME, SELF-CARE Condition: Stable Departure-Patient Inst. Decision time for Depature: 14:32 Referrals: NO,LOCAL PHYSICIAN (PCP) Primary Care Physician [facility] Patient Instructions: Abscess Incision and Drainage ED Add. Discharge Instructions: Take the antibiotics to help treat for infection with the abscess. Try to keep packing material within the wound. Continue to apply packing into the wound at least once a day or if it falls out until you can get any packing to go in. On the day you would no longer have to pack it. The packing helps to allow a wick or drain for any pus and infection to come out rather than form another pocket. You could continue to apply hot pack or warm pack over the dressing. Apply this for at least 10 to 15 minutes every 1-2 hours while awake. This would help increase blood flow and help with any drainage. Cover the packing material with gauze or a dressing to absorb any drainage. If not improving and seems to be worsening you could return or seek care with the clinic as you may need IV antibiotics. Ultimately may need to see a surgeon for surgical care of the area to prevent it from coming back every year or 2 like it has been All discharge instructions reviewed with patient and/or family. Voiced understanding. Scripts Ibuprofen (Ibuprofen) 800 Mg Tablet 800 MG PO Q8H PRN for PAIN for 10 Days, #30 TAB 0 Refills Prov: NIA KAMINSKI MD 12/10/21 Hydrocodone/Acetaminophen (Hydrocodone-Acetamin 5-325 mg) 5 Mg-325 Mg Tablet 1 TAB PO Q4H PRN for PAIN-SEVERE (8-10) for 3 Days, #18 TAB 0 Refills Prov: NIA KAMINSKI MD 12/10/21 Sulfamethoxazole/Trimethoprim (Bactrim Ds Tablet) 1 Each Tablet 1 EACH PO BID for Abscess for 10 Days, #20 TAB 0 Refills Prov: NIA KAMINSKI MD 12/10/21 Work/School Note: Work Release Form Date Seen in the Emergency Department: Dec 10, 2021 Return to Work: Dec 12, 2021 Restrictions: No Restrictions NIA KAMINSKI MD Dec 10, 2021 13:08
[2021-12-10] MEDS ORDERED: cefTRIAXone 1,000 MG VIAL IM STA (13:26)
[2021-12-10] MEDS ORDERED: HYDROcodone/APAP 5 MG/325 MG (LORTAB) TAB PO STA (13:26)
[2021-12-10] MEDS ORDERED: LIDOCAINE 1% INJ 20 ML VIAL INJ ONE (13:30)
[2021-12-10] MEDS ORDERED: IBUP-1780 PO (14:36)
[2021-12-10] MEDS ORDERED: ACHD5005 PO (14:36)
[2021-12-10] MEDS ORDERED: SULF1TAB38 PO (14:36)
[2021-12-10 14:41] VITALS: BP 130/68
== END 2021-12-10 14:41 | disposition home or self-care (01) ==
LOC: EDUNIT# 12:12 → ER FS 12:13
DX: L02.31 Cutaneous abscess of buttock (principal); Z22.322 Carrier or suspected carrier of Methicillin resistant Staphylococcus aureus; Z28.311 Partially vaccinated for COVID-19
CPT/HCPCS: 87070; 87077; 87205; 99284

== ENCOUNTER 2022-04-24 22:14 | Emergency (ER) | payer SELFPAY ==
--- NOTE | 2022-04-24 22:23 | ED Lower Extremity ---
General Chief Complaint: Lower Extremity Stated Complaint: L LEG PAIN Source: patient Exam Limitations: no limitations History of Present Illness Date Seen by Provider: Apr 24, 2022 Time Seen by Provider: 22:16 Initial Comments 41-year-old male with no pertinent past medical history coming in due to left hip pain. 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 Has been walking. Took Tylenol which has helped somewhat. The pain is moderate, throbbing, worse with ambulation, better with rest. Denies any back pain, weakness, numbness, bowel or bladder issues. Has gone to the bathroom without difficulty. Otherwise denying any other acute complaints. Allergies and Home Medications Allergies Coded Allergies: No Known Drug Allergies (Unverified , 11/27/19) Patient Home Medication List Home Medication List Reviewed: Yes Amoxicillin (Amoxicillin) 500 Mg Capsule, 500 MG PO TID Prescribed by: NIA KAMINSKI on 07/17/20 1114 Cyclobenzaprine HCl (Cyclobenzaprine HCl) 10 Mg Tablet, 10 MG PO Q8H PRN for SPASMS Prescribed by: BRENDA AMOS on 04/24/22 2244 Gabapentin (Gabapentin) 100 Mg Capsule, 300 MG PO Q8H Prescribed by: BRENDA AMOS on 04/24/22 2244 Hydrocodone/Acetaminophen (Lorcet 5-325 mg Tablet) 1 Each Tablet, 1 EACH PO Q4- 6HR PRN for PAIN-MODERATE Prescribed by: ATIF LEMUS on 11/27/19 1314 Hydrocodone/Acetaminophen (Hydrocodone-Acetamin 5-325 mg) 1 Each Tablet, 1 TAB PO Q8H PRN for PAIN-SEVERE (8-10) Prescribed by: NIA KAMINSKI on 07/17/20 1115 Hydrocodone/Acetaminophen (Hydrocodone-Acetamin 5-325 mg) 1 Each Tablet, 1 TAB PO Q4H PRN for PAIN-MODERATE (5-7) Prescribed by: ATIF LEMUS on 05/16/21 1952 Hydrocodone/Acetaminophen (Hydrocodone-Acetamin 7.5-325) 1 Each Tablet, 1 EACH PO Q6H Prescribed by: J LUIS IVORY on 07/26/21 1735 Hydrocodone/Acetaminophen (Hydrocodone-Acetamin 5-325 mg) 5 Mg-325 Mg Tablet, 1 TAB PO Q4H PRN for PAIN-SEVERE (8-10) Prescribed by: NIA KAMINSKI on 12/10/21 1437 Ibuprofen (Ibuprofen) 800 Mg Tablet, 800 MG PO Q8H PRN for PAIN Prescribed by: NIA KAMINSKI on 07/17/20 1114 Ibuprofen (Ibuprofen) 800 Mg Tablet, 800 MG PO Q8H PRN for PAIN Prescribed by: NIA KAMINSKI on 12/10/21 1436 Ketorolac Tromethamine (Ketorolac Tromethamine) 10 Mg Tablet, 10 MG PO Q8H Prescribed by: BRENDA AMOS on 04/24/22 2244 Prednisone (Prednisone) 20 Mg Tab, 40 MG PO DAILY Prescribed by: ATIF LEMUS on 11/27/19 1314 Prednisone (Prednisone) 20 Mg Tab, 40 MG PO DAILY Prescribed by: ATIF LEMUS on 05/16/21 195 Prednisone (Prednisone) 50 Mg Tab, 50 MG PO DAILY Prescribed by: J LUIS IVORY on 07/26/21 1735 Sulfamethoxazole/Trimethoprim (Bactrim Ds Tablet) 1 Each Tablet, 1 EACH PO BID Prescribed by: JEET EVANS on 12/06/21 1328 Sulfamethoxazole/Trimethoprim (Bactrim Ds Tablet) 1 Each Tablet, 1 EACH PO BID Prescribed by: NIA KAMINSKI on 12/10/21 1436 Review of Systems Constitutional: No fever EENTM: no symptoms reported Respiratory: no symptoms reported Cardiovascular: no symptoms reported Gastrointestinal: no symptoms reported Genitourinary: no symptoms reported Musculoskeletal: see HPI Skin: no symptoms reported Psychiatric/Neurological: No Symptoms Reported All Other Systems Reviewed Negative Unless Noted: Yes Past Efcljho-Ewkvzh-Qvtstp Hx Patient Social History Tobacco Use?: Yes Tobacco type used: Cigarettes Immunizations Up To Date Tetanus Booster (TDap): Unknown First/Initial COVID19 Vaccinat: SEPTEMBER 2020 Second COVID19 Vaccination Nemesio: SEPTEMBER 2020 Third COVID19 Vaccination Date: SEPTEMBER 2020 Seasonal Allergies Seasonal Allergies: No Past Medical History Surgery/Hospitalization HX: CHRONIC BACK PAIN, 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 oz. kg; 30.00 BMI Method: General Appearance: WD/WN, no apparent distress HEENT: PERRL/EOMI, normal ENT inspection, pharynx normal Neck: non-tender, full range of motion, supple, normal inspection Cardiovascular: regular rate, rhythm, no edema, no murmur Respiratory: chest non-tender, lungs clear, normal breath sounds, no r espiratory distress, no accessory muscle use Gastrointestinal: normal bowel sounds, non tender, soft; No distended, No guarding Back: normal inspection, no CVA tenderness, no vertebral tenderness, other (Technically positive straight leg test on the left without any pain in his back) Hips: bilateral hip non-tender, bilateral hip normal inspection, bilateral hip normal range of motion, bilateral hip no evidence of injury Legs: bilateral leg non-tender, bilateral leg normal inspection, bilateral leg normal range of motion, bilateral leg no evidence of injury Knees: bilateral knee non-tender, bilateral knee normal inspection, bilateral knee normal range of motion, bilateral knee no evidence of injury Ankles: bilateral ankle non-tender, bilateral ankle normal inspection, bilateral ankle normal range of motion, bilateral ankle no evidence of injury Neurologic/Tendon: normal sensation, normal motor functions, normal tendon functions Neurologic/Psychiatric: no motor/sensory deficits, alert, normal mood/affect, other (Antalgic gait) Skin: normal color, warm/dry Lymphatic: no adenopathy Progress/Results/Core Measures Results/Orders My Orders Orders - BRENDA AMOS MD Pelvis With Left Hip 2-3 View (04/24/22 22:20) Ibuprofen Tablet (Motrin Tablet) (04/24/22 22:30) Gabapentin Capsule/Tablet (Neurontin Cap (04/24/22 22:30) Dexamethasone Injection (Decadron Injec (04/24/22 22:30) Cyclobenzaprine Tablet (Flexeril Tablet) (04/24/22 22:30) Medications Given in ED Current Medications Medications Dose Ordered Sig/Brandon Route Start Time Stop Time Status Last Admin Dose Admin Dexamethasone Sodium Phosphate 8 mg ONCE ONCE IM 04/24/22 22:30 04/24/22 22:31 DC 04/24/22 22:37 8 MG Gabapentin 300 mg ONCE ONCE PO 04/24/22 22:30 12 22:31 DC 04/24/22 22:26 300 MG Vital Signs/I&O 04/24/22 12 22:17 22:42 Pulse 107 107 Resp 18 18 B/P (MAP) 190/111 (137) 190/111 Pulse Ox 97 97 O2 Delivery Room Air Room Air Progress Progress Note : Progress Note 41-year-old male coming in after he landed 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 ABCs were intact and vitals were stable on presentation. Physical exam reassuring including he is able to bear weight. X- ray of the pelvis and left hip ordered and interpreted by me showing no fracture or dislocation. He has no back tenderness, no SI joint tenderness, and no neuro findings. Given medications for symptomatic management. Patient is adamant that he wants hydrocodone, I did not recommend this given the minor traumatic injury. I recommend nonopioid analgesics at this time. Of note, I reviewed the patient's chart, and he has presented numerous times over the past year for the similar presentation with pain going down the left leg. Diagnostic Imaging Diagonstic Imaging: Xray (pelvis and left hip) Departure Impression Primary Impression: Left hip pain Additional Impression: Sciatica Qualified Codes: M54.32 - Sciatica, left side Disposition: 01 HOME, SELF-CARE Condition: Stable Departure-Patient Inst. Decision time for Depature: 22:50 Referrals: BENNY WETZEL [facility] NO,LOCAL PHYSICIAN (PCP) Primary Care Physician Patient Instructions: Sciatica ED Add. Discharge Instructions: Fortunately nothing seems to be broken or dislocated. This likely is an aggravation of your sciatic nerve. We will send a prescription strength anti- inflammatory (do not take ibuprofen with this, ok to continue to take tylenol with it), and nerve medicine, and a muscle relaxer to your pharmacy. If pain persist for the next week, I would recommend following up with Forrest Wetzel here in town who is an marketing services specialist. His number is in this paperwork. Scripts Ketorolac Tromethamine (Ketorolac Tromethamine) 10 Mg Tablet 10 MG PO Q8H for 4 Days, #12 TAB Prov: BRENDA AMOS MD 04/24/22 Gabapentin (Gabapentin) 100 Mg Capsule 300 MG PO Q8H for Neuropathic pain for 7 Days, #63 CAP Prov: BRENDA AMOS MD 04/24/22 Cyclobenzaprine HCl (Cyclobenzaprine HCl) 10 Mg Tablet 10 MG PO Q8H PRN for SPASMS for 5 Days, #15 TAB 0 Refills Prov: BRENDA AMOS MD 04/24/22 Work/School Note: Work Release Form Date Seen in the Emergency Department: Apr 24, 2022 Return to Work: Apr 26, 2022 Restrictions: No Restrictions BRENDA AMOS MD Apr 24, 2022 22:23
[2022-04-24] MEDS: IBUPROFEN 600 MG (MOTRIN) TAB PO ONE ×2 (22:27→22:41)
[2022-04-24] MEDS ORDERED: CYCLOBENZAPRINE 10 MG (FLEXERIL) TAB PO STA (22:30)
[2022-04-24] MEDS ORDERED: GABAPENTIN 100 MG (NEURONTIN) CAP PO ONE (22:30)
[2022-04-24 22:42] VITALS: BP 190/111
[2022-04-24] MEDS ORDERED: CYCL10TA25 PO (22:44)
[2022-04-24] MEDS ORDERED: KETO10TA PO (22:44)
[2022-04-24] MEDS ORDERED: GABA-486 PO (22:44)
--- NOTE | 2022-04-25 08:30 | Diagnostic Imaging Report ---
CLINICAL HISTORY: Left-sided hip pain. Jumping injury. COMPARISON: None. TECHNIQUE: 3 views of the pelvis and left hip. FINDINGS: There is no acute fracture or dislocation of the pelvis and left hip. Alignment is anatomic. The imaged joint spaces are preserved. IMPRESSION: 1. No acute fracture or dislocation of the pelvis and left hip. Dictated by: Dictated on workstation # [id number]
== END 2022-04-24 22:50 | disposition home or self-care (01) ==
LOC: EDUNIT# 22:14 → ER FS 22:15
DX: M54.30 Sciatica, unspecified side (principal); F17.210 Nicotine dependence, cigarettes, uncomplicated; Z28.310 Unvaccinated for COVID-19; X50.1XXA Overexertion from prolonged static or awkward postures, initial encounter; Y93.39 Activity, other involving climbing, rappelling and jumping off; Y92.59 Other trade areas as the place of occurrence of the external cause; Y99.0 Civilian activity done for income or pay
CPT/HCPCS: 73502

== ENCOUNTER 2022-07-30 14:05 | Emergency (ER) | payer OTHER ==
[~2022-07-30] VITALS: Ht 182 cm; Wt 106.5 kg
[~2022-07-30 14:05] MED LIST changes: +CYCL10TA25 PO; +GABA-486 PO; +KETO10TA PO
[2022-07-30] MEDS ORDERED: PENI500T PO ×2 (14:24→14:37)
[2022-07-30] MEDS ORDERED: ACHD5005 PO ×2 (14:24→14:37)
--- NOTE | 2022-07-30 14:26 | ED EENT ---
History of Present Illness General Chief Complaint: Dental Problems/Pain Stated Complaint: BROKEN TOOTH Source: patient Exam Limitations: no limitations History of Present Illness Date Seen by Provider: Jul 30, 2022 Time Seen by Provider: 14:21 Initial Comments Patient is a 41-year-old male who presents the ED for right upper dental pain. States that he broke his right upper molar about a month ago. He does report continuous pain for the past month. Has been taking ibuprofen daily without much improvement. Noted some gum swelling and redness. Denies any drainage. He has a scheduled appointment with Dr. Leung on August 21 for removal of the tooth. Denies fever, sore throat, headache, dizziness, nausea, vomit, diarrhea, facial swelling Allergies and Home Medications Allergies Coded Allergies: No Known Drug Allergies (Unverified , 11/27/19) Patient Home Medication List Home Medication List Reviewed: Yes Amoxicillin (Amoxicillin) 500 Mg Capsule, 500 MG PO TID Prescribed by: NIA KAMINSKI on 07/17/20 1114 Cyclobenzaprine HCl (Cyclobenzaprine HCl) 10 Mg Tablet, 10 MG PO Q8H PRN for SPASMS Prescribed by: BRENDA AMOS on 04/24/22 2244 Gabapentin (Gabapentin) 100 Mg Capsule, 300 MG PO Q8H Prescribed by: BRENDA AMOS on 04/24/22 2244 Hydrocodone/Acetaminophen (Lorcet 5-325 mg Tablet) 1 Each Tablet, 1 EACH PO Q4- 6HR PRN for PAIN-MODERATE Prescribed by: ATIF LEMUS on 11/27/19 1314 Hydrocodone/Acetaminophen (Hydrocodone-Acetamin 5-325 mg) 1 Each Tablet, 1 TAB PO Q8H PRN for PAIN-SEVERE (8-10) Prescribed by: NIA KAMINSKI on 07/17/20 1115 Hydrocodone/Acetaminophen (Hydrocodone-Acetamin 5-325 mg) 1 Each Tablet, 1 TAB PO Q4H PRN for PAIN-MODERATE (5-7) Prescribed by: ATIF LEMUS on 05/16/21 1952 Hydrocodone/Acetaminophen (Hydrocodone-Acetamin 7.5-325) 1 Each Tablet, 1 EACH PO Q6H Prescribed by: J LUIS IVORY on 07/26/21 1735 Hydrocodone/Acetaminophen (Hydrocodone-Acetamin 5-325 mg) 5 Mg-325 Mg Tablet, 1 TAB PO Q4H PRN for PAIN-SEVERE (8-10) Prescribed by: NIA KAMINSKI on 12/10/21 1437 Hydrocodone/Acetaminophen (Hydrocodone-Acetamin 5-325 mg) 5 Mg-325 Mg Tablet, 1 TAB PO Q4H PRN for PAIN-MODERATE (5-7) Prescribed by: MARNIE BRITO on 07/30/22 1425 Ibuprofen (Ibuprofen) 800 Mg Tablet, 800 MG PO Q8H PRN for PAIN Prescribed by: NIA KAMINSKI on 07/17/20 1114 Ibuprofen (Ibuprofen) 800 Mg Tablet, 800 MG PO Q8H PRN for PAIN Prescribed by: NIA KAMINSKI on 12/10/21 1436 Ketorolac Tromethamine (Ketorolac Tromethamine) 10 Mg Tablet, 10 MG PO Q8H Prescribed by: BRENDA AMOS on 04/24/22 2244 Penicillin V Potassium (Penicillin V Potassium) 500 Mg Tablet, 500 MG PO QID Prescribed by: MARNIE BRITO on 07/30/22 1424 Prednisone (Prednisone) 20 Mg Tab, 40 MG PO DAILY Prescribed by: ATIF LEMUS on 11/27/19 1314 Prednisone (Prednisone) 20 Mg Tab, 40 MG PO DAILY Prescribed by: ATIF LEMUS on 05/16/21 195 Prednisone (Prednisone) 50 Mg Tab, 50 MG PO DAILY Prescribed by: J LUIS IVORY on 07/26/21 1735 Sulfamethoxazole/Trimethoprim (Bactrim Ds Tablet) 1 Each Tablet, 1 EACH PO BID Prescribed by: JEET EVANS on 12/06/21 1328 Sulfamethoxazole/Trimethoprim (Bactrim Ds Tablet) 1 Each Tablet, 1 EACH PO BID Prescribed by: NIA KAMINSKI on 12/10/21 1436 Review of Systems Review of Systems Constitutional: No chills, No diaphoresis, No malaise, No weakness Eyes: Denies Blurred Vision, Denies Decreased Acuity, Denies Photophobia Ears: Denies Dizziness, Denies Clear Discharge, Denies Purulent Discharge Nose: denies clots, denies congestion, denies bloody discharge, denies clear discharge Mouth: denies clots; loose teeth, pain, swelling Throat: denies pain, denies swelling Respiratory: No cough, No dyspnea on exertion Cardiovascular: No chest pain Gastrointestinal: No abdominal pain, No diarrhea, No vomiting Musculoskeletal: No back pain, No joint pain All Other Systems Reviewed Negative Unless Noted: Yes Past Ufehlwq-Rlmvao-Fmkbjn Hx Patient Social History Tobacco Use?: Yes Tobacco type used: Cigarettes Smoking Status: Current Everyday Smoker Substance use?: No Alcohol Use?: No Pt feels they are or have been: No Immunizations Up To Date Tetanus Booster (TDap): Unknown First/Initial COVID19 Vaccinat: SEPTEMBER 2020 Second COVID19 Vaccination Nemesio: SEPTEMBER 2020 Third COVID19 Vaccination Date: SEPTEMBER 2020 Seasonal Allergies Seasonal Allergies: No Past Medical History Surgery/Hospitalization HX: CHRONIC BACK PAIN, 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 oz. kg; 30.00 BMI Method: General Appearance: WD/WN, no apparent distress Eyes: bilateral eye normal inspection, bilateral eye PERRL, bilateral eye abnormal EOM Ears: bilateral ear auricle normal, bilateral ear canal normal, bilateral ear bleeding Nose: normal inspection Mouth/Throat: normal mouth inspection, pharynx normal, dental tenderness (Right upper second molar. Extensive decay. Several teeth pulled. Gum swelling erythema. 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 Patient with severe dental disease. Decay noted right upper second molar with extensive decay. No fluctuant mass. No facial swelling or erythema. Differential diagnosis dental abscess, gingivitis, dental fracture. Due the gum swelling erythema patient will be discharged with penicillin VK concern for infectious etiology. We will provide a few days worth of pain medication. Schedule follow-up with dental on August 21. If any worsening symptoms such as increased dental pain, facial swelling, unable to eat to return back to ED. Impression Primary Impression: Pain, dental Disposition: HOME, SELF-CARE Condition: Stable Departure-Patient Inst. Decision time for Depature: 14:23 Referrals: [facility],LOCAL PHYSICIAN (PCP) Primary Care Physician Patient Instructions: Dental Pain Scripts Hydrocodone/Acetaminophen (Hydrocodone-Acetamin 5-325 mg) 5 Mg-325 Mg Tablet 1 TAB PO Q4H PRN for PAIN-MODERATE (5-7), #8 TAB Prov: BRENDA CRAIG 07/30/22 Penicillin V Potassium (Penicillin V Potassium) 500 Mg Tablet 500 MG PO QID for 7 Days, #28 TAB Prov: BRENDA CRAIG 07/30/22 BRENDA CRAIG Jul 30, 2022 14:26
[2022-07-30 14:36] VITALS: BP 144/76
== END 2022-07-30 14:37 | disposition home or self-care (01) ==
LOC: EDUNIT# 14:05 → ER 14:08
DX: K02.9 Dental caries, unspecified (principal); F17.210 Nicotine dependence, cigarettes, uncomplicated
CPT/HCPCS: 99282

== ENCOUNTER 2022-10-08 08:13 | Emergency (ER) | payer OTHER ==
[~2022-10-08] VITALS: Ht 182 cm; Wt 106.0 kg
[~2022-10-08 08:13] MED LIST changes: +PENI500T PO
[2022-10-08] MEDS ORDERED: KETOROLAC 15 MG/ML VIAL IM ONE (08:30)
[2022-10-08] MEDS ORDERED: KETO10TA PO (08:33)
--- NOTE | 2022-10-08 08:33 | ED EENT ---
History of Present Illness General Chief Complaint: Dental Problems/Pain Stated Complaint: TOOTH PAIN Nursing Triage Note: PT AMB TO [facility] OF DENTAL PAIN OF TEETH IN FRONT OF MOUTH. PT STATES HAS RECENTLY HAD OTHER TEETH REMOVED AND DENTIST PLANS TO REMOVE THESE ON 10/17/22. Source: patient Exam Limitations: no limitations History of Present Illness Date Seen by Provider: October 08, 2022 Time Seen by Provider: 08:23 Initial Comments 42-year-old male presents for mid upper and left lower dental pain. He has had symptoms off and on for several years. He had 3 teeth pulled last month in the right upper region. He is having the left lower mid teeth pulled on the . He denies any fevers or chills. No swelling. No trismus. All other systems reviewed and negative except documented per HPI. Voice recognition software was used to help create this chart Allergies and Home Medications Allergies Coded Allergies: No Known Drug Allergies (Unverified , 11/27/19) Patient Home Medication List Home Medication List Reviewed: Yes Amoxicillin (Amoxicillin) 500 Mg Capsule, 500 MG PO TID Prescribed by: NIA KAMINSKI on 07/17/20 1114 Cyclobenzaprine HCl (Cyclobenzaprine HCl) 10 Mg Tablet, 10 MG PO Q8H PRN for SPASMS Prescribed by: BRENDA AMOS on 04/24/22 2244 Gabapentin (Gabapentin) 100 Mg Capsule, 300 MG PO Q8H Prescribed by: BRENDA AMOS on 04/24/22 2244 Hydrocodone/Acetaminophen (Lorcet 5-325 mg Tablet) 1 Each Tablet, 1 EACH PO Q4- 6HR PRN for PAIN-MODERATE Prescribed by: ATIF LEMUS on 11/27/19 1314 Hydrocodone/Acetaminophen (Hydrocodone-Acetamin 5-325 mg) 1 Each Tablet, 1 TAB PO Q8H PRN for PAIN-SEVERE (8-10) Prescribed by: NIA KAMINSKI on 07/17/20 1115 Hydrocodone/Acetaminophen (Hydrocodone-Acetamin 5-325 mg) 1 Each Tablet, 1 TAB PO Q4H PRN for PAIN-MODERATE (5-7) Prescribed by: ATIF LEMUS on 05/16/21 1952 Hydrocodone/Acetaminophen (Hydrocodone-Acetamin 7.5-325) 1 Each Tablet, 1 EACH PO Q6H Prescribed by: J LUIS IVORY on 07/26/21 1735 Hydrocodone/Acetaminophen (Hydrocodone-Acetamin 5-325 mg) 5 Mg-325 Mg Tablet, 1 TAB PO Q4H PRN for PAIN-SEVERE (8-10) Prescribed by: NIA KAMINSKI on 12/10/21 1437 Hydrocodone/Acetaminophen (Hydrocodone-Acetamin 5-325 mg) 5 Mg-325 Mg Tablet, 1 TAB PO Q4H PRN for PAIN-MODERATE (5-7) Prescribed by: MARNIE BRITO on 07/30/22 1437 Ibuprofen (Ibuprofen) 800 Mg Tablet, 800 MG PO Q8H PRN for PAIN Prescribed by: NIA KAMINSKI on 07/17/20 1114 Ibuprofen (Ibuprofen) 800 Mg Tablet, 800 MG PO Q8H PRN for PAIN Prescribed by: NIA KAMINSKI on 12/10/21 1436 Ketorolac Tromethamine (Ketorolac Tromethamine) 10 Mg Tablet, 10 MG PO Q8H Prescribed by: BRENDA AMOS on 04/24/22 2244 Penicillin V Potassium (Penicillin V Potassium) 500 Mg Tablet, 500 MG PO QID Prescribed by: MARNIE BRITO on 07/30/22 1437 Prednisone (Prednisone) 20 Mg Tab, 40 MG PO DAILY Prescribed by: ATIF LEMUS on 11/27/19 1314 Prednisone (Prednisone) 20 Mg Tab, 40 MG PO DAILY Prescribed by: ATIF LEMUS on 05/16/21 195 Prednisone (Prednisone) 50 Mg Tab, 50 MG PO DAILY Prescribed by: J LIUS IVORY on 07/26/21 1735 Sulfamethoxazole/Trimethoprim (Bactrim Ds Tablet) 1 Each Tablet, 1 EACH PO BID Prescribed by: JEET EVANS on 12/06/21 1328 Sulfamethoxazole/Trimethoprim (Bactrim Ds Tablet) 1 Each Tablet, 1 EACH PO BID Prescribed by: NIA KAMINSKI on 12/10/21 1436 Review of Systems Review of Systems Constitutional: see HPI Past Rjukxml-Aflnqs-Npmrsf Hx Patient Social History Tobacco Use?: Yes Tobacco type used: Cigarettes Smoking Status: Current Everyday Smoker Substance use?: No Alcohol Use?: No Pt feels they are or have been: No Immunizations Up To Date Tetanus Booster (TDap): Unknown Influenza Vaccine Up-to-Date: No; Not Current First/Initial COVID19 Vaccinat: SEPTEMBER 2020 Second COVID19 Vaccination Nemesio: SEPTEMBER 2020 Third COVID19 Vaccination Date: SEPTEMBER 2020 Seasonal Allergies Seasonal Allergies: No Past Medical History Surgery/Hospitalization HX: CHRONIC BACK PAIN, 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 oz. kg; 32.00 BMI Method: General Appearance: WD/WN, no apparent distress Eyes: bilateral eye normal inspection, bilateral eye PERRL, bilateral eye EOMI Ears: bilateral ear auricle normal, bilateral ear canal normal, bilateral ear TM normal Nose: normal inspection Mouth/Throat: other (Poor dentition throughout. He has severely decayed teeth in the left upper incisor region which are tender. No evidence for abscess, infection. He has a broken tooth in his left lower premolar area which is tender. No facial swelling. No evidence for infection. No evidence for Veto's or submandibular issues.) Cardiovascular: regular rate, rhythm, no murmur Respiratory: chest non-tender, lungs clear Progress/Results/Core Measures Results/Orders Vital Signs/I&O 10/08/22 08:20 Temp 36.7 Pulse 56 Resp 18 B/P (MAP) 176/90 (118) Pulse Ox 98 Blood Pressure Mean: 118 Departure Communication (Admissions) Patient is hemodynamically stable. TELEMETRY reviewed and this is a chronic issue for him. Offered Toradol. He advised me that he has had in the past and it does not seem to work very well. Advised I was not willing given the chronic indications for today's visit so a temporary solution to a longstanding problem at this time. He is visibly frustrated and states understanding. He excepted Toradol and discharged in stable condition. He has a dental follow-up on the . No evidence for Brent's angina or other emergent condition at this time. Impression Primary Impression: Dental caries Disposition: HOME, SELF-CARE Condition: Stable Departure-Patient Inst. Referrals: NO,LOCAL PHYSICIAN (PCP/Family) Primary Care Physician Patient Instructions: Tooth Decay, Adult (DC) Add. Discharge Instructions: Take the Toradol as prescribed. Use the Advil Liqui-Gels as discussed with putt ing a liquid directly on the areas involved. Return to the emergency department for any severe concerns. Keep your dental appointment. All discharge instructions reviewed with patient and/or family. Voiced understanding. Scripts Ketorolac Tromethamine (Ketorolac Tromethamine) 10 Mg Tablet 10 MG PO TID for Pain for 3 Days, #9 TAB Prov: JULIA CASTILLO DO 10/08/22 JULIA CASTILLO DO October 08, 2022 08:33
[2022-10-08 08:40] VITALS: BP 176/90
== END 2022-10-08 08:41 | disposition home or self-care (01) ==
LOC: EDUNIT# 08:13 → ER 08:15
DX: K02.9 Dental caries, unspecified (principal); F17.210 Nicotine dependence, cigarettes, uncomplicated
CPT/HCPCS: 99284